=== PATIENT | male | born 1975 | race Caucasian/White ===

== ENCOUNTER 2020-06-03 11:32 | Day surgery (SDC) | payer BC ==
[~2020-06-03] VITALS: Ht 177.8 cm; Wt 109.7 kg
[~2020-06-03 11:32] MED LIST: ACET325 PO; ASCO500 PO; DOC250 PO; HYDACE5 PO; Lacri-Lube S.O3.5 GM BOTHEYES; MIRALAX17 GM PO; OXYC5 PO; Oxycodone HCl5 M1 PO; PRED20 PO; Refresh Plus1 EACH BOTHEYES; Transderm-Scop1 EACH TD; ZINC SULFATE PO; Zofran4 MG PO
--- NOTE | 2020-06-03 16:12 | NUR ---
"DAY SURGERY RN | TO OR BOTH DOCTORS AND POWDER BLENDER AND POURER RN HAVE SEEN PATIENT. REPORT TO BRENDON DEL CASTILLO. TO OR. NO ISSUES."
--- NOTE | 2020-06-03 17:50 | NUR ---
DR JACKSON NOTIFIED AND ORDER ATTAINED TO ADMIT TO EXTENDED STAY NURSING AFTER PACU FOR DISCHARGE PACU AND NURSING SUP NOTIFIED ROOM 226 TO BE DESTINATION
--- NOTE | 2020-06-03 18:40 | NUR ---
PATIENT ARRIVAL: PATIENT CAME IN ALERT AND ORIENTED X4. HE IS HAVING SOME ICE CHIPS AND A JELLO CUP. HE IS VERY TALKATIVE AND PLEASENT. HE IS LAYING IN BED WITH HIS CALL LIGHT NEXT TO HIM. PATIENT DENIES PAIN. RIGHT ARM SUPPORTED IN SLING AND CAN MOVE ALL FINGERS. ORIENTED TO ROOM AND CALL LIGHT. POST OP VITAL SIGNS IN PROGRESS.
--- NOTE | 2020-06-03 20:41 | NUR ---
BLAYNE IS A&OX4. HE RATES HIS POSTSURGICAL PAIN 1/10 AND DENIES THE NEED FOR ANY PAIN MEDICATION. CAPILLARY REFILL <3 SECONDS IN RIGHT FINGERS. Patient up to Ambulate independently. Gait steady. Discharge instructions reviewed with patient. Patient verbalizes understanding. Copy given to patient to take home. Dressing to procedure site clean, dry, intact with no visible drainage, swelling, erythema or bruising noted. Lungs clear T/O to Auscultation. AT BEDSIDE WHO IS PROVIDING RIDE HOME. [employer] PROVIDED. STATES SHE IS GOING TO CALL THE OFFICE IN THE MORNING TO CONFIRM FOLLOWUP APPOINTMENT. PT AND PLEASANT AND COOPERATIVE. THEY DEMONSTRATE KNOWLEDGE OF PROCEDURE AND POSTOP EXPECTATIONS. Discharged via wheelchair to private car for ride home.
--- NOTE | 2020-06-04 07:22 | NUR ---
06/04/20 0722 Daija Ferrara VERIFICATIONS, AUDITS.
== END 2020-06-03 20:50 | disposition home or self-care (01) ==
LOC: ORSCMMR 11:32 → SURS 18:24 → ORSCMMR 20:50
PROVIDERS: Orthopaedic Surgery
PROC: 0LQ30ZZ Repair Right Upper Arm Tendon, Open Approach (ICD-10-PCS; principal; 2020-06-03 14:00)
DX: M66.811 Spontaneous rupture of other tendons, right shoulder (principal)
CPT/HCPCS: C1713; J0690; J1100; J1885; J2250; J2405; J2704; J3010; J7120

== ENCOUNTER 2025-08-02 06:47 | Day surgery (SDC) | payer BC ==
[2025-08-02] VITALS (14 sets, daily range): BP systolic 100–143; BP diastolic 68–100
[~2025-08-02] VITALS: Ht 177.8 cm; Wt 108.4 kg
--- NOTE | 2025-08-02 07:16 | NUR ---
Patient states colon prep results clear. Pre-Op teaching done. Pt verbalizes understanding. Patient States Post-Procedure ride home has been arranged. Patient confirms NPO status and agrees with scheduled surgery. Discharge instructions reviewed with patient. Patient verbalizes understanding. Copy given to patient to take home.
--- NOTE | 2025-08-02 07:29 | NUR ---
08/02/25 0729 Cristal Soliz CONFIRMED AND REVIEWED H&P, MEDCICATIONS, ALLERGIES, MEDICAL HISTORY, RESPIRATORY HISTORY, VITAL SIGNS, 3-LEAD EKG, CONSENTS, AND PHYSICIAN ORDERS. PATIENT CONFIRMS NPO STATUS AND AGREES WITH SCHEDULED PROCEDURE. MONITOR INTACT WITH CONTINUOUS PULSE OXIMETRY, CAPNOGRAPHY, 3-LEAD EKG, INTERMITTENT BP. SUPPLEMENTAL O2 TO BE TITRATED THROUGHOUT PROCEDURE TO MAINTAIN O2 SATURATION ABOVE 90%. PATIENT DETERMINED TO BE ASA APPROPRIATE FOR PROPOFOL SEDATION PRIOR TO START OF PROCEDURE BY .MALLAMPATI CLASS 2 AIRWAY: COMPLETE VISUALIZATION OF THE [facility].
== END 2025-08-02 23:00 | disposition home or self-care (01) ==
LOC: ORSCMMR 06:47 → ORD 07:30 → ORSCMMR 23:00
PROVIDERS: Internal Medicine Gastroenterology
PROC: 0DBP8ZX Excision of Rectum, Via Natural or Artificial Opening Endoscopic, Diagnostic (ICD-10-PCS; principal; 2025-08-02 07:30)
PROC: 0DBL8ZX Excision of Transverse Colon, Via Natural or Artificial Opening Endoscopic, Diagnostic (ICD-10-PCS; principal; 2025-08-02 07:30)
DX: Z12.11 Encounter for screening for malignant neoplasm of colon (principal); D12.3 Benign neoplasm of transverse colon; K62.1 Rectal polyp
CPT/HCPCS: 88305; J2704; J7120